=== PATIENT | female | born 1980 | race Caucasian/White ===

== ENCOUNTER 2020-06-24 02:50 | Inpatient (IN) | payer MEDICAID ==
[2020-06-24] MEDS ORDERED: AMPICILLIN/NS 2 GM/100 ML 2 GM/100 ML BAG IV ONE (03:35)
[2020-06-24] MEDS ORDERED: CARBOPROST TROMETHAMINE 250 MCG/1 ML INJ IM PRN (03:35)
[2020-06-24] MEDS ORDERED: LIDOCAINE (2%) 20 MG/1 ML VIAL 20 ML MDV INFILTRATI ONE ×2 (03:35→12:50)
[2020-06-24] MEDS ORDERED: OXYTOCIN 10 UNIT/1 ML INJ IM PRN (03:35)
[2020-06-24] MEDS ORDERED: TERBUTALINE 1 MG/1 ML INJ SUB-Q PRN (03:35)
[2020-06-24] MEDS ORDERED: LOPERAMIDE 2 MG CAP PO PRN (03:35)
[2020-06-24] MEDS ORDERED: METHYLERGONOVINE MALEATE 0.2 MG/ML VIAL IM PRN (03:35)
[2020-06-24] MEDS ORDERED: MINERAL OIL 30 ML ORAL LIQD PO PRN (03:35)
[2020-06-24] MEDS ORDERED: ePHEDrine SULFATE 50 MG/1 ML INJ IV PRN ×2 (03:35→05:37)
[2020-06-24] MEDS ORDERED: LACTATED RINGERS 1,000 ML IV SCH (03:45)
[2020-06-24] MEDS ORDERED: OXYTOCIN DRIP 30 UNITS/500 ML BAG IV SCH ×2 (04:00→08:00)
[2020-06-24 04:17] LABS: Hematocrit 31.7 % (30.3-42.9); Hemoglobin 10.8 gm/dl (10.1-14.3); Mean Corpuscular HGB Conc 34 % (30-34); Mean Corpuscular Volume 83 fl (79-97); Platelet Count 344 K/mm3 (140-440); Red Blood Count 3.82 M/mm3 (3.65-5.03); Red Cell Distribution Width 14.5 % (13.2-15.2)
--- NOTE | 2020-06-24 05:24 | History and Physical Report ---
History of Present Illness Date of examination: 06/24/20 Date of admission: 06/24/20 03:37 Chief complaint: contractions History of present illness: 40o at 39w5d presents with contractions increasing in intensity and frequency. She denies leakage of fluid or vaginal bleeding. +FM. complicated by previous delivery-she requests a trial of labor. No additional complaints. Past History Past Medical History: no pertinent history Past Surgical History: appendectomy, section Family/Genetic History: none Social history: no significant social history - Obstetrical History Expected Date of Delivery: 06/26/20 Actual Gestation: 39 Week(s) 5 Day(s) : 2 Para: 1 Medications and Allergies Allergies Allergy/AdvReac Type Severity Reaction Status Date / Time No Known Allergies Allergy Unverified 06/23/20 20:38 Home Medications Medication Instructions Recorded Confirmed Last Taken Type No Known Home Medications [No 06/24/20 06/24/20 Unknown History Reported Home Medications] Active Meds: Active Medications Carboprost Tromethamine (Carboprost Tromethamine 250 Mcg/1 Ml Inj) 250 mcg IM ONCE PRN PRN Reason: Uterine Bleeding Ephedrine Sulfate (Ephedrine Sulfate 50 Mg/1 Ml Inj) 10 mg IV Q2M PRN PRN Reason: Hypotension Lactated Ringer's (Lactated Ringers) 1,000 mls @ 125 mls/hr IV DIRECT GENESIS Last Admin: 06/24/20 04:13 Dose: 125 mls/hr Documented by: Oxytocin/Sodium Chloride (Pitocin/Ns 30 Unit/500ml) 30 units in 500 mls @ 40 mls/hr IV TITR GENESIS; Protocol Ampicillin Sodium (Ampicillin/Ns 1 Gm/50 Ml) 1 gm in 50 mls @ 100 mls/hr IV Q4H GENESIS; Protocol Loperamide HCl (Loperamide 2 Mg Cap) 2 mg PO ONCE PRN PRN Reason: give with Hemabate Methylergonovine Maleate (Methylergonovine Maleate 0.2 Mg/Ml Vial) 0.2 mg IM ONCE PRN PRN Reason: Uterine Bleeding Mineral Oil (Mineral Oil 30 Ml Oral Liqd) 30 ml PO QHS PRN PRN Reason: Constipation Oxytocin (Oxytocin 10 Unit/1 Ml Inj) 10 unit IM ONCE PRN PRN Reason: Uterine Bleeding Terbutaline Sulfate (Terbutaline 1 Mg/1 Ml Inj) 0.25 mg SUB-Q ONCE PRN PRN Reason: Hyperstimulation/Hypertonicity - Vital Signs Vital signs: Vital Signs Temp Pulse Resp BP 98.5 F 82 18 121/73 06/24/20 03:11 06/24/20 03:11 06/24/20 03:11 06/24/20 03:11 Temp Pulse Resp BP Pulse Ox 98.1 F 88 16 114/63 97 06/24/20 04:20 06/24/20 04:38 06/24/20 04:20 06/24/20 04:20 06/24/20 04:38 - Physical Exam Breasts: Positive: deferred Cardiovascular: Regular rate Lungs: Positive: Clear to auscultation Abdomen: Positive: normal appearance Genitourinary (Female): Positive: normal external genitalia Uterus: Positive: other (gravid) Extremities: Positive: normal - Obstetrical FHR: category 1 FHR comments: 120s Uterine Contraction Monitor Mode: External Cervical Dilatation: 5 Cervical Effacement Percentage: 50 Uterine Contraction Frequency (min): q5 Uterine Contraction Pattern: Regular Uterine Contraction Intensity: Moderate Results Result Diagrams: 06/24/20 03:50 All other labs normal. Assessment and Plan TOLAC, anticipate vaginal delivery - Patient Problems (1) Normal labor Current Visit: Yes Status: Acute Plan to address problem: augmentation prn -pitocin per protocol PNC: per [facility]. Labs reviewed on chart B+/Abneg/Pap Normal/Rosi/HepB-HIVneg/RPRNR/GC-CTneg/GBSpositive (2) 39 weeks gestation of Current Visit: Yes Status: Acute (3) Previous delivery affecting Current Visit: Yes Status: Acute Plan to address problem: -for NRFHT R/B/A/I for repeat CD vs TOLAC reviewed, all questions answered, the patient expressed understanding and desires to proceed. 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
--- NOTE | 2020-06-24 05:35 | Anesthesia Consultation ---
Anesthesia Consult and Med Hx Date of service: 06/24/20 - Airway Anesthetic Teeth Evaluation: Good ROM Head & Neck: Adequate Mental/Hyoid Distance: Adequate Mallampati Class: Class II Intubation Access Assessment: Probably Good - Pulmonary Exam CTA: Yes - Cardiac Exam Cardiac Exam: RRR - Pre-Operative Health Status ASA Pre-Surgery Classification: ASA2 Proposed Anesthetic Plan: Epidural - Pulmonary Hx Smoking: No Hx Asthma: No COPD: No Hx Pneumonia: No Hx Sleep Apnea: No - Cardiovascular System Hx Hypertension: No Hx Heart Attack/AMI: No Hx Angina: No - Central Nervous System Hx Seizures: No Hx Psychiatric Problems: No - Gastrointestinal Hx Gastroesophageal Reflux Disease: No - Endocrine Hx Renal Disease: No Hx End Stage Renal Disease: No Hx Liver Disease: No Hx Insulin Dependent Diabetes: No Hx Non-Insulin Dependent Diabetes: No Hx Hypothyroidism: No Hx Hyperthyroidism: No - Hematic Hx Anemia: No Hx Sickle Cell Disease: No - Other Systems Hx Alcohol Use: No
[2020-06-24] MEDS ORDERED: diphenhydrAMINE 50 MG/ML VIAL IV PRN (05:37)
[2020-06-24] MEDS ORDERED: ONDANSETRON 4 MG/2 ML INJ IV PRN (05:37)
[2020-06-24] MEDS ORDERED: LACTATED RINGERS 250 ML IV SOLN IV ONE (05:37)
[2020-06-24] MEDS ORDERED: NalbUPHINE 10 MG/1 ML INJ IV PRN (05:37)
[2020-06-24] MEDS ORDERED: NALOXONE 2 MG/2 ML INJ IV PRN (05:37)
--- NOTE | 2020-06-24 05:37 | Progress Note ---
Labor Epidural - Labor Epidural Start Time: 05:20 Stop Time: 05:28 Performed by:: ALBERT EDWARDS Procedure: Patient is requesting epidural for labor and pain. H&P, labs were reviewed. Patient IDed, H&P reviewed, all questions and concerns were answered, and consent was signed. Timeout was performed at bedside. Patient in sitting position. Sterile prep and drape was performed. 3ml of 1% lidocaine skin wheal at L[3]- L [4]. 18-gauge Tuohy epidural needle was advanced to loss of resistance with air technique 6cm. Negative CSF negative blood. Epidural catheter advanced to [11] centimeters. [negative] Aspiration [negative] test dose. Sterile dressing applied. Patient tolerated procedure.
[2020-06-24] MEDS ORDERED: LACTATED RINGERS 250 ML IV ONE (05:45)
[2020-06-24] MEDS ORDERED: fentaNYL-BUPIV 2 MCG/ML-0.125% 200 MCG/100 ML BAG EPIDURAL SCH (06:00)
[2020-06-24] MEDS ORDERED: AMPICILLIN/NS 1 GM/50 ML 1 GM/50 ML BAG IV SCH (08:00)
--- NOTE | 2020-06-24 08:39 | Progress Note ---
Assessment and Plan - Patient Problems (1) 39 weeks gestation of Current Visit: Yes Status: Acute (2) Encounter for trial of labor Current Visit: Yes Status: Acute Plan to address problem: AROM @ 0826, clear fluids, tolerated well IUPC placed without difficulty Initiate Pitocin titration as tolerated Anticipate (3) Advanced maternal age (AMA) in Current Visit: Yes Status: Acute (4) GBS carrier Current Visit: Yes Status: Acute Plan to address problem: Continue GBS protocol Subjective - Subjective Date of service: 06/24/20 Principal diagnosis: TOLAC Interval history: 40o at 39w5d presents with contractions increasing in intensity and frequency. She denies leakage of fluid or vaginal bleeding. +FM. complicated by previous delivery-she requests a trial of labor. Patient reports: movement normal, contractions (irregular), no new complaints, no vaginal bleeding Objective - Vital Signs Vital Signs: Vital Signs - 12hr 06/24/20 06/24/20 06/24/20 03:11 04:18 04:19 Temperature 98.5 F Pulse Rate 82 83 81 Respiratory 18 Rate Blood Pressure 121/73 114/63 Blood Pressure [Right] O2 Sat by Pulse 99 Oximetry 06/24/20 06/24/20 06/24/20 04:20 04:23 04:28 Temperature 98.1 F Pulse Rate 73 85 Respiratory 16 Rate Blood Pressure Blood Pressure 114/63 [Right] O2 Sat by Pulse 97 98 Oximetry 06/24/20 06/24/20 06/24/20 04:33 04:38 04:43 Temperature Pulse Rate 87 88 81 Respiratory Rate Blood Pressure Blood Pressure [Right] O2 Sat by Pulse 95 97 100 Oximetry 06/24/20 06/24/20 06/24/20 04:48 04:53 04:58 Temperature Pulse Rate 87 90 85 Respiratory Rate Blood Pressure Blood Pressure [Right] O2 Sat by Pulse 96 97 97 Oximetry 06/24/20 06/24/20 06/24/20 05:03 05:08 05:13 Temperature Pulse Rate 71 86 100 H Respiratory Rate Blood Pressure Blood Pressure [Right] O2 Sat by Pulse 98 96 99 Oximetry 06/24/20 06/24/20 06/24/20 05:18 05:20 05:23 Temperature Pulse Rate 92 H 112 H 88 Respiratory Rate Blood Pressure 157/65 Blood Pressure [Right] O2 Sat by Pulse 99 99 Oximetry 06/24/20 06/24/20 06/24/20 05:27 05:28 05:29 Temperature Pulse Rate 96 H 82 75 Respiratory Rate Blood Pressure 120/58 123/61 Blood Pressure [Right] O2 Sat by Pulse 99 Oximetry 06/24/20 06/24/20 06/24/20 05:31 05:33 05:35 Temperature Pulse Rate 99 H 101 H 93 H Respiratory Rate Blood Pressure 118/63 133/74 133/79 Blood Pressure [Right] O2 Sat by Pulse 99 Oximetry 06/24/20 06/24/20 06/24/20 05:37 05:38 05:39 Temperature Pulse Rate 96 H 104 H 98 H Respiratory Rate Blood Pressure 122/66 118/60 Blood Pressure [Right] O2 Sat by Pulse 96 Oximetry 06/24/20 06/24/20 06/24/20 05:41 05:43 05:45 Temperature Pulse Rate 88 96 H 91 H Respiratory Rate Blood Pressure 125/66 117/67 114/66 Blood Pressure [Right] O2 Sat by Pulse 96 Oximetry 06/24/20 06/24/20 06/24/20 05:48 05:53 05:58 Temperature Pulse Rate 78 88 71 Respiratory Rate Blood Pressure Blood Pressure [Right] O2 Sat by Pulse 98 96 96 Oximetry 06/24/20 06/24/20 06/24/20 06:03 06:05 06:08 Temperature Pulse Rate 86 71 93 H Respiratory Rate Blood Pressure 122/71 Blood Pressure [Right] O2 Sat by Pulse 95 96 Oximetry 06/24/20 06/24/20 06/24/20 06:13 06:14 06:18 Temperature Pulse Rate 90 88 75 Respiratory Rate Blood Pressure Blood Pressure [Right] O2 Sat by Pulse 95 94 97 Oximetry 06/24/20 06/24/20 06/24/20 06:23 06:26 06:28 Temperature Pulse Rate 93 H 81 88 Respiratory Rate Blood Pressure 127/75 Blood Pressure [Right] O2 Sat by Pulse 95 95 Oximetry 06/24/20 06/24/20 06/24/20 06:31 06:33 06:38 Temperature Pulse Rate 94 H 85 94 H Respiratory Rate Blood Pressure Blood Pressure [Right] O2 Sat by Pulse 94 97 97 Oximetry 06/24/20 06/24/20 06/24/20 06:43 06:44 06:45 Temperature Pulse Rate 91 H 80 85 Respiratory Rate Blood Pressure 107/66 Blood Pressure [Right] O2 Sat by Pulse 94 94 Oximetry 06/24/20 06/24/20 06/24/20 06:48 06:53 06:58 Temperature Pulse Rate 94 H 85 82 Respiratory Rate Blood Pressure Blood Pressure [Right] O2 Sat by Pulse 97 98 97 Oximetry 06/24/20 06/24/20 06/24/20 07:03 07:08 07:13 Temperature Pulse Rate 91 H 82 93 H Respiratory Rate Blood Pressure Blood Pressure [Right] O2 Sat by Pulse 97 97 98 Oximetry 06/24/20 06/24/20 06/24/20 07:15 07:18 07:23 Temperature 98 F Pulse Rate 85 84 Respiratory 16 Rate Blood Pressure Blood Pressure [Right] O2 Sat by Pulse 97 95 Oximetry 06/24/20 06/24/20 06/24/20 07:24 07:28 07:33 Temperature Pulse Rate 84 69 87 Respiratory Rate Blood Pressure 119/70 Blood Pressure [Right] O2 Sat by Pulse 97 96 Oximetry 06/24/20 06/24/20 06/24/20 07:38 07:43 07:48 Temperature Pulse Rate 85 83 79 Respiratory Rate Blood Pressure Blood Pressure [Right] O2 Sat by Pulse 98 97 97 Oximetry 06/24/20 06/24/20 06/24/20 07:52 07:53 07:58 Temperature Pulse Rate 84 80 81 Respiratory Rate Blood Pressure 114/70 Blood Pressure [Right] O2 Sat by Pulse 98 97 Oximetry 06/24/20 06/24/20 06/24/20 08:03 08:08 08:13 Temperature Pulse Rate 82 84 82 Respiratory Rate Blood Pressure Blood Pressure [Right] O2 Sat by Pulse 97 97 97 Oximetry 06/24/20 06/24/20 06/24/20 08:18 08:23 08:28 Temperature Pulse Rate 84 100 H 82 Respiratory Rate Blood Pressure Blood Pressure [Right] O2 Sat by Pulse 97 98 97 Oximetry - Exam Breasts: deferred Cardiovascular: Regular rate Lungs: Normal air movement FHR: category 1 Uterine Contraction Monitor Mode: External Cervical Dilatation: 7 (vertex) Cervical Effacement Percentage: 70 station: -2 Uterine Contraction Frequency (min): 2-5 Uterine Contraction Pattern: Irregular Uterine Tone Measurement Phase: Resting Uterine Contraction Intensity: Moderate - Labs Labs: Laboratory Results - last 24 hr 06/24/20 06/24/20 06/24/20 03:50 03:50 03:50 WBC 9.9 RBC 3.82 Hgb 10.8 Hct 31.7 MCV 83 MCH 28 MCHC 34 RDW 14.5 Plt Count 344 Syphilis IgG Antibody Nonreactive Blood Type B POSITIVE Antibody Screen Negative
[2020-06-24] MEDS ORDERED: LANOLIN/ZINC/DIMETHICONE (LANSINOH) 7 GM TP PRN (13:44)
[2020-06-24] MEDS ORDERED: diphenhydrAMINE 25 MG CAP PO PRN (13:44)
[2020-06-24] MEDS ORDERED: MAGNESIUM HYDROXIDE (MOM) ORAL LIQD UDC PO PRN (13:44)
[2020-06-24] MEDS ORDERED: WITCH HAZEL/ GLYCERIN PAD TP PRN (13:44)
[2020-06-24] MEDS ORDERED: PROMETHAZINE 25 MG TAB PO PRN (13:44)
[2020-06-24] MEDS: IBUPROFEN 600 MG TAB PO SCH (19:01)
[2020-06-25 01:54] LABS: Hematocrit 22.2 % (30.3-42.9); Hemoglobin 7.5 gm/dl (10.1-14.3)
[2020-06-25] MEDS: oxyCODONE /ACETAMINOPHEN 5-325MG TAB PO PRN ×3 (04:27→22:32)
[2020-06-25] MEDS ORDERED: IRON DEXTRAN COMPLEX 100 MG/2 ML INJ IM ONE (06:12)
--- NOTE | 2020-06-25 08:27 | Progress Note ---
Assessment and Plan A: PPD#1 s/p at term; Hemorrhage P: Routine care. Pt requests discharge later today. Consider discharge this afternoon with follow up in 2 wks. Subjective - Subjective Date of service: 06/25/20 Principal diagnosis: s/p , hemorrhage Interval history: Pt without complaints this morning. Vaginal pack and vaughn catheter removed this morning. Denies dizziness with ambulation. Patient reports: appetite normal, pain well controlled, ambulating normally, no voiding normally (vaughn just removed ) [place]: doing well Objective - Vital Signs Latest vital signs: Vital Signs Temp Pulse Resp BP BP Pulse Ox 06/25/20 01:06 98.6 F 74 16 114/69 06/24/20 19:30 98.6 F 66 16 114/78 06/24/20 19:01 20 06/24/20 16:55 98.8 F 101 H 20 106/64 100 06/24/20 15:58 93 H 99 06/24/20 15:53 95 H 99 06/24/20 15:48 89 100 06/24/20 15:44 88 120/61 06/24/20 15:43 87 99 06/24/20 15:38 89 98 06/24/20 15:33 92 H 100 06/24/20 15:28 91 H 100 06/24/20 15:23 100 H 99 06/24/20 15:18 94 H 99 06/24/20 15:14 93 H 102/53 06/24/20 15:13 91 H 99 06/24/20 15:08 89 99 06/24/20 15:03 93 H 98 06/24/20 15:00 98.1 F 06/24/20 14:58 86 99 06/24/20 14:53 96 H 98 06/24/20 14:48 105 H 97 06/24/20 14:44 103 H 130/62 06/24/20 14:43 102 H 98 06/24/20 14:38 98 H 98 06/24/20 14:33 103 H 98 06/24/20 14:28 102 H 98 06/24/20 14:23 111 H 98 06/24/20 14:18 94 H 98 06/24/20 14:13 109 H 145/79 99 06/24/20 14:08 94 H 99 05/20/21 14:03 103 H 100 05/20/21 13:58 96 H 144/69 99 05/20/21 13:53 111 H 100 05/20/21 13:48 109 H 100 05/20/21 13:44 117 H 134/73 05/20/21 13:43 112 H 100 05/20/21 13:38 102 H 99 05/20/21 13:33 95 H 100 05/20/21 13:28 95 H 126/73 98 05/20/21 13:23 93 H 100 05/20/21 13:18 92 H 100 05/20/21 13:13 98.4 F 95 H 20 127/72 100 05/20/21 13:08 100 H 100 05/20/21 13:03 94 H 100 05/20/21 12:58 93 H 100 05/20/21 12:53 100 H 100 05/20/21 12:52 94 H 129/65 05/20/21 12:48 104 H 100 05/20/21 12:43 106 H 100 05/20/21 12:38 101 H 100 05/20/21 12:33 93 H 100 05/20/21 12:28 95 H 100 05/20/21 12:23 105 H 100 05/20/21 12:22 102 H 130/70 05/20/21 12:18 94 H 99 05/20/21 12:13 95 H 99 05/20/21 12:08 96 H 99 05/20/21 12:03 93 H 99 05/20/21 11:58 92 H 99 05/20/21 11:53 94 H 98 05/20/21 11:52 91 H 119/74 05/20/21 11:48 89 99 05/20/21 11:43 88 98 05/20/21 11:38 91 H 98 05/20/21 11:33 94 H 98 05/20/21 11:28 95 H 99 05/20/21 11:23 95 H 98 05/20/21 11:22 88 121/74 05/20/21 11:18 86 98 05/20/21 11:13 90 98 05/20/21 11:08 97 H 98 05/20/21 11:03 90 96 05/20/21 10:58 87 98 05/20/21 10:53 97 H 98 05/20/21 10:52 95 H 127/80 05/20/21 10:48 106 H 98 05/20/21 10:43 84 97 05/20/21 10:38 82 98 05/20/21 10:33 81 97 05/20/21 10:28 82 97 05/20/21 10:23 88 112/67 98 05/20/21 10:18 84 98 05/20/21 10:13 79 98 05/20/21 10:08 87 97 05/20/21 10:03 84 97 05/20/21 09:58 87 96 05/20/21 09:53 86 97 05/20/21 09:52 83 113/72 05/20/21 09:48 92 H 97 05/20/21 09:43 88 97 05/20/21 09:38 82 98 05/20/21 09:33 89 97 05/20/21 09:28 80 97 05/20/21 09:23 76 117/68 97 05/20/21 09:18 79 98 05/20/21 09:13 84 97 05/20/21 09:08 83 96 05/20/21 09:03 82 97 05/20/21 08:58 78 97 05/20/21 08:53 79 116/68 97 05/20/21 08:48 75 96 05/20/21 08:43 77 97 05/20/21 08:38 97 H 98 05/20/21 08:33 87 98 05/20/21 08:28 82 97 Intake and Output 0520/21 05/21/21 05/21/21 22:59 06:59 14:59 Intake Total 300 Output Total 1500 Balance -1200 Intake: Intake, Free Water 300 Output: Urine 1500 Indwelling Catheter 1500 Other: Total, Output Amount 1500 - Exam Breasts: Present: deferred Abdomen: Present: soft Uterus: Present: fundal height below umbilicus Extremities: Present: normal - Labs Labs: Abnormal lab results 06/25/20 Range/Units 01:45 Hgb 7.5 L D (10.1-14.3) gm/dl Hct 22.2 L D (30.3-42.9) %
[2020-06-25] MEDS: IBUPROFEN 600 MG TAB PO SCH ×2 (09:36→18:35)
[2020-06-25] MEDS: PRENATAL VIT27-FE FUMARATE-FOLIC ACID VIT TAB PO SCH (09:37)
--- NOTE | 2020-06-25 14:43 | Event Note ---
Date: 06/25/20 On-call MD called this patient's nurse to see if she has voided after vaughn removal this morning around 730 am. She just voided 400 mL. Awaiting repeat CBC. Consider discharge later today with close clinical follow up per patient request. .
--- NOTE | 2020-06-25 15:07 | Post Anesthesia Evaluation ---
- Post Anesthesia Evaluation Patient Participated: Yes Airway Patent: Yes Stable Respiratory Function: Yes Nausea/Vomiting: No Temp > 96.8F: Yes Pain Manageable: Yes Adequeate Hydration: Yes Anesthesia Complications: No Block Receding Appropriately: Yes
[2020-06-25 16:08] LABS: Hematocrit 24.6 % (30.3-42.9); Hemoglobin 8.2 gm/dl (10.1-14.3); Mean Corpuscular HGB Conc 34 % (30-34); Mean Corpuscular Volume 84 fl (79-97); Platelet Count 343 K/mm3 (140-440); Red Blood Count 2.92 M/mm3 (3.65-5.03); Red Cell Distribution Width 14.6 % (13.2-15.2)
[2020-06-26] MEDS: IBUPROFEN 600 MG TAB PO SCH (07:58)
[2020-06-26 09:04] VITALS: BP 95/54
[2020-06-26] MEDS: PRENATAL VIT27-FE FUMARATE-FOLIC ACID VIT TAB PO SCH (10:35)
--- NOTE | 2020-06-26 15:12 | Event Note ---
Date: 06/26/20 Dr Casillas contacted for discharge order for this patient. Notified that pt's lochi is appropriate and she is voiding well. She will be discharged today with follow up in 2 wks in the office.
--- NOTE | 2020-06-26 15:14 | Discharge Summary ---
Providers - Providers Date of Admission: 06/24/20 03:37 Date of discharge: 06/26/20 Attending physician: YUDITH BOYLE MD 06/24/20 13:48 Consult to [employer] [CONS] Routine Reason For Exam: assistance with , SNS Primary care physician: YUDITH BOYLE MD Hospitalization Reason for admission: active labor Delivery: Procedure details: Please see delivery note. Episiotomy: none Laceration: 2nd degree Other procedures: none complications: other ( hemorrrhage) Discharge diagnosis: IUP at term delivered baby: female Hospital course: Pt was admitted in active labor and went on to have a vaginal after which she tolerated well. Her delivery was complicated by hemorrhage. A vaginal pack and vaughn catheter were placed after delivery and removed on on day #1. She had a successful voiding trial and met discharge criteria on PPD#2. She will follow up in 2 weeks in the office for laceration check. Condition at discharge: Stable Disposition: [id number] TO HOME OR SELFCARE - Discharge Diagnoses (1) Vaginal after delivery Status: Acute (2) Term of female Status: Acute (3) 39 weeks gestation of Status: Acute (4) Acute blood loss anemia Status: Acute (5) Advanced maternal age (AMA) in Status: Acute (6) hemorrhage of vagina Status: Acute (7) Previous delivery affecting Status: Acute Plan - Discharge Medications Prescriptions: Ferrous Sulfate [Feosol 325 MG tab] 325 mg PO BID #60 tablet Ibuprofen [Motrin] 600 mg PO Q6H PRN #30 tablet PRN Reason: Pain HYDROcodone/APAP 5-325 [[place] 5/325] 1 each PO Q6HR PRN #15 tablet PRN Reason: Pain - Provider Discharge Summary Activity: routine, no sex for 6 weeks, no heavy lifting 4 weeks, no strenuous exercise Diet: routine Instructions: routine Additional instructions: [] Smoking cessation referral if applicable(refer to patient education folder for contact #) [] Refer to [facility] Booklet Call your doctor immediately for: * Fever > 100.5 * Heavy vaginal bleeding ( >1 pad per hour) * Severe persistent headache * Shortness of breath * Reddened, hot, painful area to leg or breast * Drainage or odor from incision. * Keep incision clean and dry at all times and follow doctor's instructions regarding bathing/showering - Follow up plan Follow up: MAKENNA ESPINOZA, DISTRIBUTION SYSTEMS SUPERINTENDENT [Advanced Practice Nurse] - 14 Days (Please call to schedule appt)
--- NOTE | 2020-07-07 14:22 | Procedure Note ---
OB Delivery Note - Delivery Date of Delivery: 06/24/20 (1235) Surgeon: WILFREDO MAURO (CNM) - Vaginal Delivery presentation: vertex Delivery position: OA (FIOR) Delivery induction: none Delivery augmentation: rupture of membranes (0840) Delivery monitor: external FHT, internal uterine Route of delivery: Indicators for instrumentation: nonreassuring FHR tracing Delivery placenta: spontaneous (1242) Delivery cord: nuchal cord (x 2, reduced at perineum), 3 umbilical vessels Episiotomy: none Delivery laceration: 2nd degree, other (sulcus tear) Delivery repair: vicryl (3.0-CT-1 and 3.0 SH) Anesthesia: epidural Delivery comments: of viable, crying female infant placed directly to maternal abdomen. NICU team at bedside during delivery. Cord double clamped and cut by myself after cessation of pulsation. Placenta spontaneously delivered, ty, disposed per hospital policy. Uterus firm @ U-1. Perineum with second degree laceration and sulcus tear noted. Second degree repaired. 1 lap left in vagina for continued oozing, to be removed after 2 hrs. Mother and baby safe, stable and left in care of RN. - Infant A at 1 minute: 8 at 5 minutes: 9 Infant Gender: Female (Weight: 3178 gms (7lbs) 20.5 inches)
== END 2020-06-26 17:09 | disposition home or self-care (01) | DRG 774 ==
LOC: TRG 02:50 → APU 02:52 → LD 03:37 → TRG 03:37 → OB 16:58
PROVIDERS: ADMIT Obstetrics & Gynecology; ATTEND Obstetrics & Gynecology
PROC: 0KQM0ZZ Repair Perineum Muscle, Open Approach (ICD-10-PCS; principal; 2020-06-24)
PROC: 10H07YZ Insertion of Other Device into Products of Conception, Via Natural or Artificial Opening (ICD-10-PCS; 2020-06-24)
PROC: 10E0XZZ Delivery of Products of Conception, External Approach (ICD-10-PCS; 2020-06-24)
DX: O34.211 Maternal care for low transverse scar from previous cesarean delivery (principal); O72.1 Other immediate postpartum hemorrhage; D62 Acute posthemorrhagic anemia; Z20.822 Contact with and (suspected) exposure to COVID-19; O09.519 Supervision of elderly primigravida, unspecified trimester; Z3A.39 39 weeks gestation of pregnancy; Z90.49 Acquired absence of other specified parts of digestive tract; O99.824 Streptococcus B carrier state complicating childbirth; Z37.0 Single live birth; O90.81 Anemia of the puerperium; O70.1 Second degree perineal laceration during delivery
CPT/HCPCS: 36415; 59025; 85014; 85018; 85027; 86592; 86850; 86900; 86901; 99211; G0378; G0463; J0290; J1750; J2590; J7120; U0003